=== PATIENT | male | born 1955 | race Caucasian/White ===

== ENCOUNTER 2016-08-14 16:03 | Emergency (ER) | payer OTHER ==
[~2016-08-14] VITALS: Ht 170.2 cm; Wt 87.0 kg
[~2016-08-14 16:03] MED LIST: ASPI-664 PO
[2016-08-14 16:12] VITALS: Ht 170.2 cm; Wt 87.0 kg
[2016-08-14] MEDS ORDERED: SOD CHLORIDE 0.9% 500 ML IV STA (22:16)
[2016-08-14] MEDS ORDERED: PROSTATE PO (22:36)
[2016-08-14] MEDS ORDERED: BLOOD PRESSURE PO (22:39)
[2016-08-14] MEDS ORDERED: CHOLESTEROL PO (22:40)
[2016-08-14 22:43] LABS: BASOPHILS % 0.4 % (0.0-2.0); EOSINOPHILS # 0.1 10^3/ul (0.0-0.5); EOSINOPHILS % 1.2 % (0.0-7.0); HEMATOCRIT 50.7 % (42.0-52.0); HEMOGLOBIN 17.5 g/dl (14.0-18.0); LYMPHOCYTES # 2.7 10^3/ul (0.8-2.9); LYMPHOCYTES % 27.7 % (15.0-51.0); MEAN CORPUSCULAR HEMOGLOBIN 30.6 pg (29.0-33.0); MEAN CORPUSCULAR HGB CONC 34.5 g/dl (32.0-37.0); MEAN CORPUSCULAR VOLUME 88.6 fl (82.0-101.0); MEAN PLATELET VOLUME 8.8 fl (7.4-10.4); MONOCYTE # 0.7 10^3/ul (0.3-0.9); MONOCYTES % 7.4 % (0.0-11.0); NEUTROPHIL # 6.3 10^3/ul (1.6-7.5); NEUTROPHILS % 63.3 % (39.0-77.0); PLATELET COUNT 173 10^3/UL (140-440); RED BLOOD COUNT 5.72 10^6/ul (4.70-6.10); RED CELL DISTRIBUTION WIDTH 13.6 % (11.5-14.5); UNCORRECTED WBC 9.9 10^3/ul (4.8-10.8); WHITE BLOOD COUNT 9.9 10^3/ul (4.8-10.8)
[2016-08-14 22:44] LABS: INR 0.94; PROTIME 12.6 Sec (12.2-14.2)
[2016-08-14 22:45] LABS: PARTIAL THROMBOPLASTIN TIME 27.3 Sec (25.0-35.0)
[2016-08-14 22:47] LABS: CONDITION 1
[2016-08-14 22:49] LABS: ALBUMIN 4.5 g/dl (3.3-4.9)
[2016-08-14 22:51] LABS: BILIRUBIN,INDIRECT 0.6 mg/dl (0-1.1); BILIRUBIN,TOTAL 0.6 mg/dl (0.2-1.3); CREATININE 0.85 mg/dl (0.61-1.24)
[2016-08-14 22:52] LABS: ALBUMIN/GLOBULIN RATIO 1.36; CALCIUM 9.6 mg/dl (8.4-10.2); TOTAL PROTEIN 7.8 g/dl (6.1-8.1)
[2016-08-14 23:02] LABS: TROPONIN-I 0.012 ng/ml (0.00-0.12)
[2016-08-14 23:06] VITALS: TEMP 97.8
[2016-08-14] MEDS ORDERED: LORAZEPAM 2 MG INJ IV ONE (23:30)
--- NOTE | 2016-08-15 00:43 | RADRPT ---
PROCEDURE: CHEST CLINICAL INDICATION: 61-year-old with chest pain. TECHNIQUE: AP views of the chest was obtained portably on two radiographs. The images were reviewe d on a PACS workstation. COMPARISON: Chest x-ray September 22, 2012. FINDINGS: The cardiomediastinal silhouette has a normal appearance. There is no evidence for an infiltrate. There is no evidence for congestive heart failure. There is no evidence for pneumothorax. The osseou s structures are intact. IMPRESSION: No evidence for active cardiopulmonary disease. .Chris Madison MD, MD Date Time Electronically viewed and signed by .Chris Madison MD, MD on 08/15/2016 00:43 .M/
--- NOTE | 2016-08-15 01:23 | ERD ---
ER Documentation Chief Complaint Date/Time DATE: 08/15/16 TIME: 01:21 Chief Complaint CP X 1 WEEK HPI This is a 61 mL because of chest pain on and off for the past week. Patient does not elevated blood pressures. Chest pain is pressure-like, right-sided, no exacerbating or alleviating factors. He is in numbness and tingling of his fingertips on both hands as well. Patient says his been under a lot of stress lately. Denies any fevers or chills. Denies any nausea vomiting. Denies any other current complaints. ROS All systems reviewed and are negative except as per history of present illness. Medications Home Meds Reported Medications [Cholesterol] No Conflict Check, PO DAILY 08/14/16 [Blood Pressure] No Conflict Check, PO DAILY 08/14/16 [Prostate] No Conflict Check, PO DAILY 08/14/16 Discontinued Reported Medications Aspirin* (Aspirin* (EC)) 81 Mg Tablet.dr, 81 MG PO DAILY, TAB 03/19/14 Allergies Allergies: Coded Allergies: No Known Allergy (Unverified , 08/14/16) PMhx/Soc Medical and Surgical Hx: pt denies Medical Hx History of Surgery: Yes (ABDOMINAL SURGERY;RT WRIST SURGERY,HERNIA) Anesthesia Reaction: No Hx Neurological Disorder: No Hx Respiratory Disorders: No Hx Cardiac Disorders: No Hx Psychiatric Problems: No Hx Miscellaneous Medical Probl: No (PAIN OVER RIGHT SIDE OF STOMACH) Hx Alcohol Use: No Hx Substance Use: No Hx Tobacco Use: Yes (3 TO 5 CIG A DAY) Smoking Status: Current every day smoker Physical Exam Vitals Vital Signs Date Time Temp Pulse Resp B/P Pulse Ox O2 Delivery O2 Flow Rate FiO2 08/14/16 23:47 Nasal Cannula 2 08/14/16 23:44 74 18 143/96 98 Room Air 2.0 08/14/16 23:06 97.8 70 14 158/106 97 Room Air 08/14/16 22:54 97.8 70 08/14/16 22:11 93.4 79 16 164/93 97 Room Air 08/14/16 16:12 97.2 94 20 159/94 95 Physical Exam Const: [] Head: Atraumatic Eyes: Normal Conjunctiva ENT: Normal External Ears, Nose and Mouth. Neck: Full range of motion..~ No meningismus. Resp: Clear to auscultation bilaterally Cardio: Regular rate and rhythm, no murmurs Abd: Soft, non tender, non distended. Normal bowel sounds Skin: No petechiae or rashes Back: No midline or flank tenderness Ext: No cyanosis, or edema Neur: Awake and alert Psych: Normal Mood and Affect Result Diagram: 08/14/16222708/14/162227 Results 24 hrs Laboratory Tests Test 08/14/16 22:28 Activated Partial Thromboplast Time 27.3Sec Alanine Aminotransferase (ALT/SGPT) 49IU/L Albumin 4.5g/dl Albumin/Globulin Ratio 1.36 Alkaline Phosphatase 59IU/L Anion Gap 16 Aspartate Amino Transf (AST/SGOT) 36IU/L B-Type Natriuretic Peptide 145PG/ML Basophils # 0.010^3/ul Basophils % 0.4% Blood Urea Nitrogen 14mg/dl Calcium Level 9.6mg/dl Carbon Dioxide Level 25mmol/L Chloride Level 103mmol/L Creatinine 0.85mg/dl Direct Bilirubin 0.00mg/dl Eosinophils # 0.110^3/ul Eosinophils % 1.2% Globulin 3.30g/dl Glucose Level 88mg/dl Hematocrit 50.7% Hemoglobin 17.5g/dl INR International Normalized Ratio 0.94 Indirect Bilirubin 0.6mg/dl Lymphocytes # 2.710^3/ul Lymphocytes % 27.7% Mean Corpuscular Hemoglobin 30.6pg Mean Corpuscular Hemoglobin Concent 34.5g/dl Mean Corpuscular Volume 88.6fl Mean Platelet Volume 8.8fl Monocytes # 0.710^3/ul Monocytes % 7.4% Neutrophils # 6.310^3/ul Neutrophils % 63.3% Nucleated Red Blood Cells # 0.010^3/ul Nucleated Red Blood Cells % 0.0/100WBC Platelet Count 39605^3/UL Potassium Level 4.0mmol/L Prothrombin Time 12.6Sec Prothrombin Time Ratio 1.0 Red Blood Count 5.7210^6/ul Red Cell Distribution Width 13.6% Sodium Level 140mmol/L Total Bilirubin 0.6mg/dl Total Protein 7.8g/dl Troponin I 0.012ng/ml White Blood Count 9.910^3/ul Current Medications Medications (Trade) Dose Ordered Sig/Leila Route PRN Reason Start Time Stop Time Status Last Admin Dose Admin Sodium Chloride (NS) 500 ml @ 500 mls/hr Q1H STAT IV 08/14/16 22:16 08/14/16 23:15 DC 08/14/16 22:36 Lorazepam (Ativan) 1 mg ONCE ONCE IV 08/14/16 23:30 08/14/16 23:31 DC 08/14/16 23:20 Procedures/MDM Chest X-ray 1V Interpreted by me: Soft Tissue: No acute abnormalities Bones: No acute abnormalities Mediastinum/Cardiac Silhouette/Lungs: [No acute abnormalities] EKG: Rate/Rhythm: [Normal Sinus Rhythm] QRS, ST, T-waves: [No changes consistent w/ acute ischemia] Impression: [No evidence of ischemia or arrhythmia] Patient's thoracic symptoms have stabilized while in the department and are stable for outpatient follow up. Exam and work up not consistent w/ ischemia, arrhythmia, PE or dissection. Symptoms are disconcerting morbid generalized anxiety. Patient resolved all symptomology 1 mg Ativan. Will be sent home a short course of lorazepam. Return for any return of symptoms via 911. Departure Diagnosis: Primary Impression: Chest pain Chest pain type: unspecified Qualified Code: R07.9 - Chest pain, unspecified type Additional Impression: Anxiety Condition: Stable CRISTA SAM Aug 15, 2016 01:23
[2016-08-15] MEDS ORDERED: LORA1TAB PO (01:28)
[2016-08-15 02:05] VITALS: BP 153/84; PULSE 71; RESP 17
--- NOTE | 2016-08-15 05:06 | RADRPT ---
PROCEDURE: XR Lumbar Spine. CLINICAL INDICATION: Pain. TECHNIQUE: X-ray of the lumbar spine were performed including AP, lateral, and coned L5-S1 views w as performed. COMPARISON: No prior studies are available for comparison. FINDINGS: Vertebral body stature and alignment maintained. There is no evidence of fracture or subluxation. IMPRESSION: No evidence of compression fracture. RPTAT: HIKT .Sami Shepard MD, MD Date Time Electronically viewed and signed by .Sami Shepard MD, on 08/15/2016 05:05 .T/
== END 2016-08-15 02:15 | disposition home or self-care (01) ==
LOC: E/R 16:03
DX: R07.9 Chest pain, unspecified (principal); F41.9 Anxiety disorder, unspecified; F17.210 Nicotine dependence, cigarettes, uncomplicated; R40.2142 Coma scale, eyes open, spontaneous, at arrival to emergency department; R40.2252 Coma scale, best verbal response, oriented, at arrival to emergency department; R40.2362 Coma scale, best motor response, obeys commands, at arrival to emergency department
CPT/HCPCS: 36415; 71010; 72100; 80053; 83880; 84484; 85025; 85610; 85730; 93005; 96374; J2060; J7040; Z7502